=== PATIENT | female | born 1990 | race Caucasian/White ===

== ENCOUNTER 2016-10-12 19:23 | Inpatient (IN) ==
[2016-10-13] MEDS: LACTATED RINGERS 1,000 ML IV SCH ×2 (00:05→12:16)
[2016-10-13] MEDS ORDERED: BUTORPHANOL 2 MG/ML VIAL IV PRN (00:10)
[2016-10-13] MEDS ORDERED: ACETAMINOPHEN 325 MG TABLET PO PRN ×2 (00:10→20:11)
[2016-10-13] MEDS ORDERED: ONDANSETRON 4 MG/2 ML VIAL IV PRN ×2 (00:10→20:11)
[2016-10-13 00:42] LABS: Basophils % 0.2 % (0.0-0.8); Eosinophils % 0.4 % (0.00-10.9); Hematocrit 31.8 VOL% (35.7-47.0); Hemoglobin 11.3 GM/DL (12.0-16.0); Immature Granulocytes Absolute 0.09 #; Lymphocytes # 2.6 10*3/uL (1.4-4.0); Lymphocytes % 28.3 % (21.3-54.2); Mean Corpuscular HGB Conc 35.5 GM/DL (32-36); Mean Corpuscular Hemoglobin 31 PG (27-34); Mean Corpuscular Volume 87.6 FL (87-102); Mean Platelet Volume 10.9 FL (9.6-12.0); Monocytes # 0.9 10*3/uL (0.11-0.8); Monocytes % 9.3 % (1.7-12.7); Neutrophils # 5.5 10*3/uL (1.4-7.4); Neutrophils % 60.8 % (38.7-73.9); Platelet Count 143 T/CUMM (130-400); Red Blood Count 3.63 MC/CUMM (3.8-5.5); White Blood Count 9.1 T/CUMM (4-12)
[2016-10-13 01:04] LABS: Alanine Aminotransferase 16 U/L (13-56); Albumin 2.5 G/DL (3.4-5.0); Alkaline Phosphatase 135 U/L (45-117); Aspartate Amino Transferase 16 U/L (0-37); Bilirubin,Total < 0.39 MG/DL (0.2-1.0); Blood Urea Nitrogen 9 MG/DL (7-18); Calcium 8.6 MG/DL (8.5-10.1); Glucose 103 MG/DL (74-106); Osmolality,Calculated 279.3 MOS/KG (273-304); Potassium 3.6 MMOL/L (3.5-5.1); Sodium 141 MMOL/L (136-145); Total Protein 5.3 G/DL (6.4-8.3)
--- NOTE | 2016-10-13 07:13 | OB/GYN History & Physical ---
History of Present Illness Chief complaint: 39 weeks elective induction History of present illness: Ms. Stewart is a 26 year old female 2 para 0 at 39 weeks estimated gestational age who requests elective induction. Ultrasound estimated weight is 8 pounds with adequate clinical pelvimetry and presentation is confirmed vertex. The risks benefits alternatives were explained to patient detail and informed to was obtained for the above and all her questions were answered to her satisfaction patient agrees with management plan Home Medications Medication Instructions Recorded Confirmed Type No122/Iron/Folic Acid 1 tablet PO DAILY 09/01/16 10/12/16 History [ Multi Tablet] Allergies Allergy/AdvReac Type Severity Reaction Status Date / Time No Known Allergies Allergy Verified 09/01/16 17:23 12 point system: reviewed and no additional remarkable complaints except as stated Medical,Surgical,& Family Hx - Medical History Reproductive: No history of: Ectopic , Complication - Family History Family History: Reports;: Family Cancer (MGF, PGM), Family Diabetes (DAD, MGF), Family Heart Disease (MOM, MGF), Family Stroke (DAD) Denies;: Family Anesthesia Reaction, Family Hematology, Family Hypertension, Family Psychiatric Problems, Additional Family History - Social History Smoking Status: Never smoker Frequency of Alcohol Use: None 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 - Constitutional Vitals: Vital Signs Temp Pulse Resp BP Pulse Ox 10/13/16 00:00 98.1 F 90 18 115/66 10/12/16 20:00 97.8 F 100 H 20 131/61 97 General appearance: no acute distress - Head Head exam: Present: normal inspection, normocephalic, atraumatic - Eye Eye exam: Present: EOMI - Neck Neck exam: Present: normal inspection - Respiratory Respiratory exam: Present: clear to auscultation bilaterally - Breast Breasts: as per HPI Menstruation: as per HPI - Cardiovascular Cardiovascular exam: Present: regular rate and rhythm - GI/Abdominal GI/Abdominal exam: Present: normal bowel sounds - Extremities Exam Extremities exam: Present: normal inspection, normal capillary refill - Back Exam Back exam: Present: normal inspection - Neurological Exam Neurological exam: Present: alert, oriented X3 - Psychiatric Psychiatric exam: Present: normal affect, normal mood - Skin Skin exam: Present: normal color, warm Assessment and Plan (1) with 39 completed weeks gestation Status: Acute Current Visit: Yes (2) Elective induction of labor planned Status: Acute Current Visit: Yes Results - Labs CBC & BMP: 10/13/16 00:26 10/13/16 00:26
[2016-10-13] MEDS ORDERED: hydrOXYzine HCL 25 MG/1 ML VIAL IM PRN (11:16)
[2016-10-13] MEDS ORDERED: ePHEDrine 50 MG/ML AMP IV PRN (11:16)
[2016-10-13] MEDS ORDERED: PROMETHAZINE 25 MG/1 ML VIAL IM ONE (11:16)
[2016-10-13] MEDS ORDERED: CITRIC ACID/SODIUM CITRATE 30 ML UDCUP PO ONE (11:16)
[2016-10-13] MEDS ORDERED: FAMOTIDINE 20 MG/2 ML VIAL IV ONE (11:16)
[2016-10-13] MEDS ORDERED: fentaNYL 2 MCG/ROPIV 0.2% EPID 150 ML EPIDURAL SCH (11:16)
[2016-10-13] MEDS ORDERED: diphenhydrAMINE 50 MG/1 ML VIAL IV PRN ×2 (11:16)
[2016-10-13] MEDS ORDERED: ONDANSETRON 4 MG/2 ML VIAL IV ONE (11:16)
[2016-10-13] MEDS ORDERED: OXYTOCIN/D5LR 20 UNIT/1,000 ML PREMIX IV SCH (11:30)
[2016-10-13] MEDS ORDERED: OXYTOCIN/LR 20 UNIT/1,000 ML BAG IV SCH (12:00)
[2016-10-13] MEDS ORDERED: PHENYLEPHRINE 1 MG/10 ML SYRINGE IV ONE (12:12)
[2016-10-13] MEDS ORDERED: LIDOCAINE 2% 5 ML VIAL ONE (12:12)
[2016-10-13] MEDS ORDERED: ONDANSETRON 4 MG/2 ML VIAL ONE (12:12)
[2016-10-13] MEDS ORDERED: fentaNYL 100 MCG/2 ML VIAL ONE (13:30)
[2016-10-13] MEDS ORDERED: ROPIVACAINE 0.5% 30 ML VIAL ONE (13:36)
[2016-10-13] MEDS ORDERED: HYDROCORTISONE 2.5% RECTAL CREAM 30 GM TUBE TOP PRN (20:11)
[2016-10-13] MEDS ORDERED: BENZOCAINE 20%/MENTHOL 0.5% SPRAY 56 GM CAN TOP PRN (20:11)
[2016-10-13] MEDS ORDERED: LANOLIN 50% CREAM 0.3 OZ TUBE TOP PRN (20:11)
[2016-10-13] MEDS ORDERED: MEASLES/MUMPS/RUBELLA VACCINE 0.5 ML VIAL SUBCUT ONE (20:11)
[2016-10-13] MEDS ORDERED: RHO(D) IMMUNE GLOBULIN 300 MCG SYRINGE IM ONE (20:11)
[2016-10-13] MEDS ORDERED: oxyCODONE/ACETAMINOPHEN 5-325 MG TABLET PO PRN (20:11)
[2016-10-13] MEDS ORDERED: BISACODYL 10 MG SUPP RECTAL PRN (20:11)
[2016-10-13] MEDS ORDERED: DIPH/TET/ACEL PERT BOOSTER VACCINE 0.5 ML VIAL IM ONE (20:11)
[2016-10-13] MEDS ORDERED: OXYTOCIN/LR 20 UNIT/1,000 ML BAG IV ONE (20:11)
[2016-10-13] MEDS ORDERED: WITCH HAZEL PADS 100/JAR TOP PRN (20:11)
--- NOTE | 2016-10-13 20:11 | Operative Note ---
Date of procedure: 10/13/16 Pre-op diagnosis: 39 weeks failed induction CPD with anterior asynclitism Post-op diagnosis: same Procedure: This is Dr. Dominguez dictating operative note: Preoperative diagnosis intrauterine intrauterine at [39] weeks Postoperative diagnosis same Procedure primary low transverse section Surgeon Dr. Dominguez Anesthesia spinal Findings liveborn female infant 8 lbs. 13 oz. Complications none Estimated blood loss [400] mL Disposition patient to recovery room in [stable] condition. Infant to nursery in [stable] condition Operative description: After the risks benefits and alternatives were explained to the patient in detail and informed consent was obtained, the patient was taken to the operating room where she was placed in the supine position. After achieving appropriate anesthesia the abdomen was prepped and draped in the usual sterile fashion. A Davis catheter was placed without difficulty. After the appropriate time out and after adequate anesthesia was ascertained a Pfannenstiel skin incision was made and carried down through the subcutaneous tissue down to the fascia. The fascia was nicked in the midportion and undermined and incised both laterally and cephalad using sharp dissection with the curved Villagran scissors. 2 [place] clamps were used to elevate the rectus fascia superiorly which was bluntly and sharply dissected away from the rectus muscle below. This was repeated inferiorly. The rectus muscles were then bluntly in the midline the peritoneum identified grasped with 2 curved hemostats and entered sharply using the curved Metzenbaum scissors. A bladder blade was then placed in the pelvis and a bladder flap was created off the lower uterine segment using sharp dissection with the Metzenbaum scissors. The bladder blade was then repositioned. A transverse incision was made across the lower uterine segment down to the amnion. Entry into the amnion revealed [ clear] amniotic fluid. The uterine incision was then extended laterally using bilateral finger fractionation. Upon palpation the presenting part was [vertex ] which was gently elevated out of the pelvis and delivered onto the abdominal wall using appropriate fundal pressure. Presentation was right occiput transverse with anterior asynclitism the 's nose and oropharynx were bulb and DeLee suctioned and the had spontaneous cry delivery. The cord was doubly clamped and cut and the was handed over to the team for care. Cord blood was obtained. The placenta was delivered manually and IV Pitocin antibiotics and Zofran were begun. The uterus was then exteriorized and placed in a wet laparotomy sponge. 2 fingers wrapped around a wet laparotomy sponge were used to remove all residual membranes from the uterine cavity. The uterus was then closed in 2 layers. The first layer of myometrium was closed with #1 Monocryl suture in an inner locking fashion beginning at both angles and overlapping slightly in the midline. The second layer of myometrium was closed with #1 Monocryl suture in a running imbricating stitch beginning at the right angle and continuing the length of the uterine incision. Hemostasis was noted to be excellent. The posterior cul-de-sac was then irrigated and cleansed with a wet laparotomy sponge and the uterus was placed back in the abdominal cavity. Both pericolic gutters were then irrigated and cleansed with a wet lap sponge. The uterine incision was then re-irrigated and again noted to be hemostatic. All counts were noted to be correct. The subcutaneous tissue was then closed using 3-0 Vicryl suture in a running fashion. The subfascial area was made hemostatic using electrocautery and closed with #1 PDS suture in a running fashion beginning at both angles and overlapping slightly in the midline. The subcutaneous tissue was irrigated and made hemostatic using electrocautery and closed with 2-0 Vicryl suture in a running fashion and the skin was closed with wide skin charmaine and a sterile pressure bandage was applied to the wound. All sponge needle and instrument counts were correct -3 at the end of the procedure. The patient's urine was [ clear] both at the beginning in the end of the procedure. The patient was taken to the recovery room in stable condition Anesthesia: spinal Surgeon / Physician: Mayo Dominguez Estimated blood loss: other (400) Specimens: none sent Condition: stable Disposition: floor Results - Labs CBC & BMP: 10/13/16 00:26 10/13/16 00:26 Discharge Plan - Discharge Medications No Action No122/Iron/Folic Acid [ Multi Tablet] 1 tablet PO DAILY - Follow Up or Referral - Forms/Instructions
--- NOTE | 2016-10-13 20:28 | Anesthesia Post-Op ---
Anesthesia Post OP - Post Ansesthetic Evaluation Patient seen in post op: Yes Resp: within normal limits CV: within normal limits Mental: within normal limits Temp: within normal limits [id number]: within normal limits Nausea and Vomiting: within normal limits Pain: within normal limits
[2016-10-13] MEDS ORDERED: MORPHINE 10 MG/10 ML VIAL ONE (20:30)
[2016-10-13 23:10] LABS: Cord Venous Blood HCO3 18.7 MMOL/L; Cord Venous Blood PCO2 41.9 MMHG
[2016-10-14] MEDS: DOCUSATE SODIUM 100 MG CAPSULE PO SCH ×3 (05:13→20:45)
[2016-10-14] MEDS: LACTATED RINGERS 1,000 ML IV SCH ×3 (05:15→14:41)
[2016-10-14 06:39] LABS: Basophils % 0.2 % (0.0-0.8); Eosinophils % 0.1 % (0.00-10.9); Hematocrit 29.9 VOL% (35.7-47.0); Hemoglobin 10.7 GM/DL (12.0-16.0); Immature Granulocytes % 0.8 %; Lymphocytes # 1.9 10*3/uL (1.4-4.0); Mean Corpuscular HGB Conc 35.8 GM/DL (32-36); Mean Corpuscular Hemoglobin 32 PG (27-34); Mean Corpuscular Volume 88.5 FL (87-102); Mean Platelet Volume 10.8 FL (9.6-12.0); Monocytes # 0.8 10*3/uL (0.11-0.8); Monocytes % 6.4 % (1.7-12.7); Neutrophils # 9.6 10*3/uL (1.4-7.4); Neutrophils % 77.5 % (38.7-73.9); Platelet Count 121 T/CUMM (130-400); Red Blood Count 3.38 MC/CUMM (3.8-5.5); Red Cell Distribution Width 12.9 % (9.3-17.3); White Blood Count 12.4 T/CUMM (4-12)
--- NOTE | 2016-10-14 06:47 | OB/GYN Progress Note ---
Assessment and Plan (1) with 39 completed weeks gestation Status: Acute Current Visit: Yes (2) Elective induction of labor planned Status: Acute Current Visit: Yes MANAGER ASSET MANAGEMENT - PN: Subj Interval history: Patient is doing well. She is tolerating her diet. She is alert and oriented -3 Cardiovascular regular rate and rhythm Lungs clear to auscultation Abdomen soft with appropriate tenderness and bowel sounds are present and her incision is dry no bleeding Is good refill HEENT shows pink conjunctiva assessment 1 day of surgery doing well Plan continue present management with expected DC in a.m. Exam MANAGER ASSET MANAGEMENT - Constitutional Vitals: Vital Signs Temp Pulse Resp BP Pulse Ox 10/14/16 04:00 96.6 F L 88 18 103/46 100 10/14/16 02:00 88 20 132/64 97 10/14/16 01:00 85 20 125/59 98 10/14/16 00:00 97.2 F L 87 18 122/57 100 10/13/16 23:30 85 18 127/58 99 10/13/16 23:00 96.2 F L 88 20 139/72 99 10/13/16 20:00 97.7 F 98 H 18 111/59 100 Results - Labs CBC & BMP: 10/14/16 06:03 10/13/16 00:26
[2016-10-14] MEDS: IBUPROFEN 800 MG TABLET PO PRN ×2 (07:00→14:45)
[2016-10-14] MEDS: oxyCODONE/ACETAMINOPHEN 5-325 MG TABLET PO PRN ×3 (07:00→23:00)
[2016-10-14] MEDS: MULTIVITAMIN (PRENATAL) TABLET PO SCH (09:15)
[2016-10-15] MEDS: IBUPROFEN 800 MG TABLET PO PRN (05:27)
[2016-10-15] MEDS: oxyCODONE/ACETAMINOPHEN 5-325 MG TABLET PO PRN (05:27)
[2016-10-15 07:11] VITALS: BP 93/55
--- NOTE | 2016-10-15 07:40 | Discharge Summary ---
Hospital Course - Hospital Course Hospital Course: Postoperatively the patient did well. She had quick return of bowel and bladder function. She remained afebrile and normotensive throughout her hospitalization. She is consequently discharged on postoperative day #2 on a regular diet. Her discharge medication included Percocet for pain. She was given bleeding and infection cautions instructed maintain pelvic rest and limited activity and instructed to return office in 1 week for follow-up Diagnosis - Discharge Diagnosis (1) with 39 completed weeks gestation Status: Acute (2) Elective induction of labor planned Status: Acute Specialty Discharge - Follow Up or Referrals Discharge Plan - Discharge Data Disposition: Disch To Home/Self Care Condition at Discharge: Stable Discharge Diet: regular diet Activity: increase activity as tolerated, no lifting, other (Pelvic rest) Hygiene: may shower Weight Bearing at Discharge: full weight bearing Driving: not until seen by doctor Contact your physician if you experience:: fever over 101, Difficulty voiding, Redness or swelling, Nausea/Vomiting, Shortness of breath, Bleeding, pain uncontrolled by pain medications - Discharge Medications New oxyCODONE/ACETAMINOPHEN 5-325 [Percocet 5-325] 1 tablet PO Q6H PRN #20 tablet PRN Reason: Pain Severe (8-10) Discontinued No122/Iron/Folic Acid [ Multi Tablet] 1 tablet PO DAILY - Follow Up or Referral Follow Up: Mayo Dominguez MD [Physician] - 1 Week - Forms/Instructions Instructions: Section (DC), Perineal Care (DC), Bleeding (DC) Exam - Constitutional Vitals: Period Temp Pulse Resp BP Sys/Silverio Pulse Ox Last 24 Hr 96.7 F-98.3 F 82-102 18-20 93-117/50-72 95-99 DS: Provider Date of admission: 10/12/16 19:23 Primary care physician: . No PCP Attending physician on admission: Claire Portillo Consults: 10/13/16 00:10 Consult to Anesthesiology [CONS] Routine Consulting Provider: Reason for Anesthesiology: Epidural Consult Comment: Epidural for pain managment 10/13/16 20:12 Consult to Medical Instructor [CONS] Routine Consult Medical Instructor: Breast Feeding Discharging clinician: Claire Portillo Expected date of discharge: 10/15/16
[2016-10-15] MEDS: DOCUSATE SODIUM 100 MG CAPSULE PO SCH (08:59)
[2016-10-15] MEDS: MULTIVITAMIN (PRENATAL) TABLET PO SCH (08:59)
== END 2016-10-15 12:40 | disposition home or self-care (01) | DRG 766 ==
LOC: EDSTATUS 19:23 → N.LDOUT 19:23 → N.LD 19:23 → N.OB 10-13 23:00
PROVIDERS: ADMIT Specialist; ATTEND Specialist
PROC: LDCSECT (ICD-10-PCS; 2016-10-13 18:50)